=== PATIENT | male | born 1940 | race African-American/Black ===

== ENCOUNTER 2020-12-06 08:35 | Day surgery (SDC) | payer OTHER ==
[2020-12-02 13:22] VITALS: BMI 39.9
[2020-12-06 09:26] VITALS: BP 149/68; PULSE 78; TEMP 98.7
[2020-12-06 09:52] LABS: INR 3.75 (0.82-1.09); PROTHROMBIN TIME (PATIENT) 38.5 SEC (10.2-13.0)
== END 2020-12-06 10:15 | disposition home or self-care (01) ==
LOC: FASU-ENDO 08:35
PROVIDERS: ATTEND Internal Medicine Gastroenterology
PROC: 0DJD8ZZ Inspection of Lower Intestinal Tract, Via Natural or Artificial Opening Endoscopic (ICD-10-PCS; principal; 2020-12-06)
DX: Z12.11 Encounter for screening for malignant neoplasm of colon (principal); Z53.09 Procedure and treatment not carried out because of other contraindication
CPT/HCPCS: 36415; 82962; 85610